=== PATIENT | female | born 1995 | race African-American/Black ===

== ENCOUNTER 2016-08-15 20:14 | Emergency (ER) | payer OTHER ==
[~2016-08-15] VITALS: Ht 165.1 cm; Wt 51.3 kg
[~2016-08-15 20:14] MED LIST: TYLENOL325 MG ORAL
[2016-08-15 21:01] VITALS: BP 145/93
[2016-08-15] MEDS ORDERED: ROBAXIN-750750 MG PO (21:53)
[2016-08-15] MEDS ORDERED: IBUPROFEN600 MG ORAL (21:53)
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
[2016-08-15 22:00] VITALS: BP 138/81
[2016-08-15 23:41] VITALS: BP 138/81
== END 2016-08-15 22:17 | disposition home or self-care (01) ==
LOC: EMR 21:36
DX: Z04.1 Encounter for examination and observation following transport accident (principal); J45.909 Unspecified asthma, uncomplicated; V49.9XXA Car occupant (driver) (passenger) injured in unspecified traffic accident, initial encounter; Y92.410 Unspecified street and highway as the place of occurrence of the external cause; Y99.8 Other external cause status
CPT/HCPCS: 99284